=== PATIENT | female | born 1975 | race Hispanic/Latino ===

== ENCOUNTER 2024-02-18 13:45 | Emergency (ER) | payer BC ==
[2024-02-18] MEDS ORDERED: LIDOCAINE 1% 20 ML MDV ONE (14:12)
[2024-02-18] MEDS ORDERED: HYDROCODONE/APAP 7.5/325 MG TAB ONE (14:13)
[2024-02-18] MEDS ORDERED: SMZ./TMP. 800/160 MG TABLET ONE (14:13)
--- NOTE | 2024-02-18 14:38 | EDPHYS ---
Physician Documentation [facility] Name: Susy Martins Age: 49 yrs Sex: Female : 1975 Arrival Date: 02/18/2024 Time: 13:45 Bed 4 Private MD: ED Physician Torsten Woods HPI: 02/17 14:12 This 49 yrs old Female presents to ER via Ambulatory with complaints of Insect sb4 Bite. 14:12 The patient presents with an abscess of the left scapular area. Description: The sb4 affected area is moderate sized, well demarcated, draining, erythematous, fluctuant, hot, raised, swollen, tense, warm. Onset: The symptoms/episode began/occurred 10 day(s) ago. Possible cause(s): unknown. Associated signs and symptoms: Pertinent positives: discharge, drainage, erythema, fever. The patient has not experienced similar symptoms in the past. The patient has not recently seen a physician. 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 - Infectious Disease History:: Denies. - Social history:: Smoking status: Patient denies any tobacco usage or history of. ROS: 14:12 Cardiovascular: Negative for chest pain, palpitations, and edema, sb4 14:12 Constitutional: Positive for fever, 14:12 Skin: Positive for abscess, 14:12 All other systems are negative, Exam: 14:13 Constitutional: This is a well developed, well nourished patient who is awake, alert, sb4 and in no acute distress. Head/Face: Normocephalic, atraumatic. Eyes: Extra-ocular motions intact. Periorbital areas with no swelling, redness, or edema. ENT: Mucous membranes moist. 14:13 Skin: abscess, that is moderate sized, approximately 4 cm(s), of the left scapular area, with fluctuance, that is moderate, with surrounding cellulitis, that is moderate, Vital Signs: 13:55 BP 158 / 94; Pulse 72; Resp 14; Temp 98.1; Pulse Ox 100% on R/A; ko1 Procedures: 14:37 I \T\ D: Incision and drainage was performed for an abscess of the left left scapular sb4 area Prepped with Betadine, Anesthetized with 4 ml's 1% Lidocaine. Incised with #11 blade. Drained moderate amount serosanguinous fluid. Dressing: sterile 4x4 gauze, the patient tolerated the procedure well. MDM: 13:51 Medical Screening Exam initiated sb4 14:38 Data reviewed: vital signs, nurses notes, and as a result, I will discharge patient. sb4 Counseling: I had a detailed discussion with the patient and/or guardian regarding the historical points, exam findings, and any diagnostic results supporting the discharge/admit diagnosis, the presence of at least one elevated blood pressure reading (>120/80) during this emergency department visit, to return to the emergency department if symptoms worsen or persist or if there are any questions or concerns that arise at home. 02/17 14:09 Order name: Wound Culture sb4 02/17 14:09 Order name: Incision \T\ Drainage Setup; Complete Time: 14:17 sb4 02/17 14:09 Order name: Suction; Complete Time: 14:17 sb4 Administered Medications: 14:16 Drug: Trimethoprim-Sulfamethoxazole PO (160 mg-800 mg (DS) 1 tablet PO once Route: PO; bp 14:55 Follow up: Response: No adverse reaction bp 14:17 Drug: Hydrocodone-Acetaminophen PO (7.5 mg-325 mg) 1 tabs PO once Route: PO; bp 14:55 Follow up: Response: No adverse reaction bp 14:17 Drug: Lidocaine Infiltration (1 %) 5 ml 5 ml Infiltration once; to bedside Volume: 5 bp ml; Route: Infiltration; Disposition: 15:19 Co-signature as Attending Physician, Torsten Woods MD I reviewed the patient's care rn provided by the Advanced Practice Provider and agree with the diagnosis and treatment plan. Disposition Summary: 02/18/24 14:38 Discharge Ordered Notes: Location: Home sb4 Problem: new sb4 Symptoms: have improved sb4 Condition: Stable sb4 Diagnosis - Cutaneous abscess of back [any part, except buttock] sb4 Followup: sb4 - With: Emergency Department - When: As needed - Reason: Fever > 102 F, Worsening of condition Discharge Instructions: - Discharge Summary Sheet sb4 - Skin Abscess, [id number] sb4 - Incision and Drainage, Care After sb4 Forms: - Antibiotic Education sb4 - Patient Portal Instructions sb4 - Leadership Thank You Letter sb4 Prescriptions: - Bactrim DS 800-160 mg Oral Tablet - take 1 tablet ORAL route every 12 hours for 10 days; 20 tablet; Refills: 0, sb4 Product Selection Permitted Signatures: Dispatcher [employer] EDTorsten Stacy MD MD rn Peltier, Brian, RN RN Rima Cordova RN RN Richa Craig, PA-Dylan PAYing sb4
--- NOTE | 2024-02-18 14:38 | ER ---
Nurse's Notes [facility] Name: Susy Martins Age: 49 yrs Sex: Female : 1975 Arrival Date: 02/18/2024 Time: 13:45 Bed 4 Private MD: Diagnosis: Cutaneous abscess of back [any part, except buttock] Presentation: 02/17 13:55 Chief complaint: Spouse and/or significant other states: has large bump on left ko1 shoulder, started about 10 days ago. Coronavirus screen: At this time, the client does not indicate any symptoms associated with coronavirus-19. Ebola Screen: No symptoms or risks identified at this time. Initial Sepsis Screen: Does the patient meet any 2 criteria? No. Patient's initial sepsis screen is negative. Does the patient have a suspected source of infection? No. Patient's initial sepsis screen is negative. Risk Assessment: Do you want to hurt yourself or someone else? Patient reports no desire to harm self or others. Onset of symptoms is unknown. 13:55 Method Of Arrival: Ambulatory ko1 13:55 Acuity: SKYLER 3 ko1 Triage Assessment: 13:58 Bite description: bite sustained to left scapular area by an unknown animal, animal ko1 information: vaccination(s) is not applicable. General: Appears in no apparent distress. Behavior is calm, cooperative, appropriate for age. Pain: Complains of pain in left scapular area. 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 - Infectious Disease History:: Denies. - Social history:: Smoking status: Patient denies any tobacco usage or history of. Screenin:56 [facility] ED Fall Risk Assessment (Adult) History of falling in the last 3 months, bp including since admission No falls in past 3 months (0 pts) Confusion or Disorientation No (0 pts) Intoxicated or Sedated No (0 pts) Impaired Gait No (0 pts) Mobility Assist Device Used No (0 pt) Altered Elimination No (0 pt) Score/Fall Risk Level 0 - 2 = Low Risk. Abuse screen: Denies threats or abuse. Denies injuries from another. Nutritional screening: No deficits noted. Tuberculosis screening: No symptoms or risk factors identified. Assessment: 14:00 General: Appears in no apparent distress. uncomfortable. Pain: Complains of pain in bp left scapular area. Neuro: No deficits noted. Cardiovascular: No deficits noted. Respiratory: No deficits noted. GI: No signs and/or symptoms were reported involving the gastrointestinal system. : No signs and/or symptoms were reported regarding the genitourinary system. EENT: No deficits noted. Derm: Skin is intact, Skin is pink, warm \T\ dry. Musculoskeletal: No deficits noted. Vital Signs: 13:55 BP 158 / 94; Pulse 72; Resp 14; Temp 98.1; Pulse Ox 100% on R/A; ko1 ED Course: 13:50 Patient arrived in ED. mg5 13:50 Richa Hanson PA-C is PHCP. sb4 13:50 Torsten Woods MD is Attending Physician. sb4 13:58 Triage completed. ko1 13:58 Arm band placed on right wrist. Patient placed in an exam room, on a stretcher, on ko1 pulse oximetry, Patient notified of wait time. 14:16 Wyatt Rosario, RN is Primary Nurse. tm6 14:55 Assist provider with I \T\ D: of an abscess on left axilla. Patient did not have IV bp access during this emergency room visit. 14:56 Patient has correct armband on for positive identification. bp Administered Medications: 14:16 Drug: Trimethoprim-Sulfamethoxazole PO (160 mg-800 mg (DS) 1 tablet PO once Route: PO; bp 14:55 Follow up: Response: No adverse reaction bp 14:17 Drug: Hydrocodone-Acetaminophen PO (7.5 mg-325 mg) 1 tabs PO once Route: PO; bp 14:55 Follow up: Response: No adverse reaction bp 14:17 Drug: Lidocaine Infiltration (1 %) 5 ml 5 ml Infiltration once; to bedside Volume: 5 bp ml; Route: Infiltration; Medication: 14:57 VIS not applicable for this client. bp Outcome: 14:38 Discharge ordered by . sb4 14:56 Discharged to home ambulatory, with family, bp 14:56 Condition: stable 14:56 Discharge instructions given to patient, family, Instructed on discharge instructions, follow up and referral plans. medication usage, wound care, Demonstrated understanding of instructions, follow-up care, medications, wound care, Prescriptions given X 1, 14:57 Patient left the ED. bp Signatures: Jackson Escalante, RN RN bp Rima De La Torre, RN RN ko1 Richa Hanson, RAMONA PAYing sb4 Kayleigh Morocho mg5 Wyatt Rosario RN RN tm6
[2024-02-18 15:08] VITALS: BP 158/94; TEMP 98.1; O2SAT 100
== END 2024-02-18 14:57 | disposition home or self-care (01) ==
LOC: ER 13:45
PROC: 0H96XZZ Drainage of Back Skin, External Approach (ICD-10-PCS; principal; 2024-02-18)
DX: L02.212 Cutaneous abscess of back [any part, except buttock and flank] (principal); I10 Essential (primary) hypertension
CPT/HCPCS: 87070; 87205; 87077; 87186; 99284; 10060; J2003